=== PATIENT | female | born 1950 | race Caucasian/White ===

== ENCOUNTER 2023-09-07 11:15 | Emergency (ER) | payer OTHER, MEDICARE ==
[2023-09-07 11:35] VITALS: BP 160/87; O2SAT 100
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
== END 2023-09-07 13:00 | disposition home or self-care (01) ==
LOC: ED 11:15
DX: S09.90XA Unspecified injury of head, initial encounter (principal); S16.1XXA Strain of muscle, fascia and tendon at neck level, initial encounter; V53.5XXA Driver of pick-up truck or van injured in collision with car, pick-up truck or van in traffic accident, initial encounter; Y92.410 Unspecified street and highway as the place of occurrence of the external cause
CPT/HCPCS: 99283; 99284